=== PATIENT | male | born 1955 | race African-American/Black ===

== ENCOUNTER 2020-01-20 21:34 | Emergency (ER) | payer MEDICAID ==
[~2020-01-20] VITALS: Ht 182.9 cm; Wt 84.0 kg
[2020-01-20] MEDS ORDERED: ACETAMINOPHEN 325MG TABLET PO ONE (22:00)
[2020-01-21 10:25] VITALS: BP 147/80
== END 2020-01-21 10:27 | disposition home or self-care (01) ==
LOC: ER 21:34
DX: M79.18 Myalgia, other site (principal); M79.604 Pain in right leg; Z59.0 Homelessness
CPT/HCPCS: 99282